=== PATIENT | female | born 1950 | race Caucasian/White ===

== ENCOUNTER → 2017-02-01 | Outpatient (CLI) | payer OTHER ==
[~2017-02-01] MED LIST: BABY ASPIRIN81 M1 PO; CALCIUM 600 +1 EACH PO; CETIRIZINE HCL10 M1 PO; COMBIVENT RESPIM4 GM IH; COMBIVENT200 INHALA IH; DICYCLOMINE HCL20 MG PO; DILANTIN100 MG PO; DILANTIN30 MG PO; DITROPAN5 MG PO; DOLOPHINE HCL5 MG PO; DOXYCYCLINE HY100 MG PO; ENDOCET 10-3251 EACH PO; FOSAMAX70 MG PO; LEVAQUIN750 MG PO; LOPRESSOR25 MG PO; MORPHINE SULFAT15 M1 PO; NEURONTIN300 MG PO; NITROSTAT0.4 MG SL; NORVASC2.5 MG PO; PLAVIX75 MG PO; PREDNISONE20 MG PO; PROTONIX20 MG PO; SUMATRIPTAN SUC50 MG PO; VASOTEC10 MG PO; ZITHROMAX100 MG/5 M PO
== END | disposition home or self-care (01) ==
LOC: NUC 10:10
DX: R10.11 Right upper quadrant pain (principal)
CPT/HCPCS: 78227; A9537; J2805

== ENCOUNTER 2017-06-26 08:47 | Day surgery (SDC) | payer OTHER ==
[~2017-06-26] VITALS: Ht 158.8 cm; Wt 105.0 kg
[~2017-06-26 08:47] MED LIST changes: +ADVAIR 500/501 DISK IH; +CARAFATE1 GM PO; +CATAPRES0.2 MG PO; -COMBIVENT200 INHALA IH; +DUONEB 2.5-0.5 M3 ML AEROSOL; +ELAVIL10 MG PO; +FLONASE ALLERG9.9 ML BOTH NARES; +INCRUSE ELLI62.5 MCG IH; +KEPPRA250 MG PO; +NEURONTIN100 MG PO; +NICODERM CQ1 EAC1 TD; +PRAVACHOL20 MG PO; +PREDNISONE10 MG PO; +PROVENTIL,2.5 MG/3 M IH; +TESSALON200 MG PO; +VENTOLIN HFA18 GM IH; +ZYBAN 150 MG T150 MG PO
[2017-06-26 09:55] VITALS: BP 145/80
[2017-06-26 10:34] LABS: METH RESISTANT S AUREUS PCR NEGATIVE (NEGATIVE); PROBE CHECK PASS; SPECIMEN PROCESSING CONTROL PASS
[2017-06-26] MEDS ORDERED: NORCO 5/3251 TABLET PO (11:19)
[2017-06-26 13:11] VITALS: BP 142/64
[2017-06-26 14:15] VITALS: BP 165/72
[2017-06-26 15:45] VITALS: BP 162/72
== END 2017-06-26 15:50 | disposition home or self-care (01) ==
LOC: SDC 08:47
PROVIDERS: Surgery
PROC: 0FT44ZZ Resection of Gallbladder, Percutaneous Endoscopic Approach (ICD-10-PCS; principal; 2017-06-26)
DX: K80.10 Calculus of gallbladder with chronic cholecystitis without obstruction (principal); K76.0 Fatty (change of) liver, not elsewhere classified; J44.9 Chronic obstructive pulmonary disease, unspecified; I25.10 Atherosclerotic heart disease of native coronary artery without angina pectoris; K21.9 Gastro-esophageal reflux disease without esophagitis; I10 Essential (primary) hypertension; E78.5 Hyperlipidemia, unspecified; R73.03 Prediabetes; E66.9 Obesity, unspecified; Z68.41 Body mass index [BMI] 40.0-44.9, adult; Z85.51 Personal history of malignant neoplasm of bladder; Z85.3 Personal history of malignant neoplasm of breast; F17.200 Nicotine dependence, unspecified, uncomplicated; Z88.0 Allergy status to penicillin
CPT/HCPCS: 87641; 88304; 94640; J0330; J0744; J1100; J1170; J2250; J2405; J2710; J3010; S0074